=== PATIENT | male | born 1985 | race Caucasian/White ===

== ENCOUNTER 2016-12-29 22:45 | Emergency (ER) | payer OTHER ==
[~2016-12-29] VITALS: Ht 182.9 cm; Wt 104.6 kg
[~2016-12-29 22:45] MED LIST: HYDR-3240 PO; IBUP200T5 PO; SULF1TAB24 PO
[2016-12-29 22:46] VITALS: BP 138/91
[2016-12-29] MEDS ORDERED: PROPARACAINE OPHTH 0.5%, 15ML ONE (23:04)
[2016-12-29] MEDS ORDERED: FLUORESCEIN OPHTHALMIC 1 MG STRIP ONE (23:04)
[2016-12-30] MEDS ORDERED: PROPARACAINE OPHTH 0.5%, 15ML ONE (00:09)
== END 2016-12-30 00:40 | disposition home or self-care (01) ==
LOC: ED 23:59
DX: T15.02XA Foreign body in cornea, left eye, initial encounter (principal); X58.XXXA Exposure to other specified factors, initial encounter; Y93.89 Activity, other specified; Y92.89 Other specified places as the place of occurrence of the external cause; Y99.8 Other external cause status
CPT/HCPCS: 65222